=== PATIENT | male | born 1980 | race Caucasian/White ===

== ENCOUNTER 2023-11-08 21:23 | Inpatient (IN) | payer OTHER ==
[~2023-11-08] VITALS: Ht 182.9 cm; Wt 124.3 kg
[~2023-11-08 21:23] MED LIST: FURO-149 PO; MELO-89 PO; TORS10TA15 PO
[2023-11-08 21:31] VITALS: BP_SYST 163; PULSE 102; RESP 20; TEMP 98; O2SAT 96
[2023-11-08 23:08] LABS: BASOPHILS % (AUTO) 0.3 % (0.0-2.0); EOSINOPHILS # (AUTO) 0.4 K/uL (0.0-0.4); HEMATOCRIT 32.1 % (36-54); HEMOGLOBIN 11.1 g/dL (14.0-18.0); LYMPHOCYTES # (AUTO) 1.8 K/uL (1.0-5.5); LYMPHOCYTES % (AUTO) 20.1 % (20.5-51.5); MEAN CORPUSCULAR HEMOGLOBIN 29 pg (27-31); MEAN CORPUSCULAR HGB CONC 35 % (32-36); MEAN CORPUSCULAR VOLUME 83 fL (79.0-98.0); MONOCYTES # (AUTO) 1.3 K/uL (0.0-1.0); MONOCYTES % (AUTO) 14.8 % (1.7-9.3); NEUTROPHILS # (AUTO) 5.4 K/uL (1.8-7.7); NEUTROPHILS % (AUTO) 60.8 % (40.0-70.0); PLATELET COUNT (AUTO) 479 K/uL (130-430); RED BLOOD CELL COUNT(AUTO) 3.85 MIL/uL (4.2-6.2); RED CELL DISTRIBUTION WIDTH 13.3 % (9.0-15.0); WHITE BLOOD COUNT (AUTO) 8.9 K/uL (4.8-10.8)
[2023-11-08 23:22] LABS: PROTHROMBIN TIME 10.3 SECS (9.5-12.5)
[2023-11-08 23:26] LABS: ANION GAP 6 (5-15); CALCIUM 7.8 mg/dL (8.4-11.0); CARBON DIOXIDE 28 mmol/L (23-29); CHLORIDE 103 mmol/L (98-107); GFR AFRICAN AMERICAN 65 mL/min (>90); GLUCOSE 120 mg/dL (74-106); POTASSIUM 3.9 mmol/L (3.5-5.1); SODIUM SERUM 137 mmol/L (136-145); UREA NITROGEN, BLOOD 17 mg/dL (8-21)
[2023-11-08 23:30] LABS: GFR NON AFRICAN-AMERICAN 54 mL/min (>90)
[2023-11-08] MEDS ORDERED: PIPERACILLIN/TAZOBACTAM 4.5 GM/VIAL (ZOSYN) IV ONE (23:32)
[2023-11-08] MEDS: PIPERACILLIN/TAZO 4.5 GM in NS 100 ML IV ONE (23:40)
[2023-11-08] MEDS: LABETALOL HCL 20 MG/4 ML CARTRIDGE IVP ONE (23:40)
[2023-11-08] MEDS: MORPHINE 4 MG INJ. 4 MG/ML VIAL IVP ONE (23:41)
[2023-11-09] VITALS (8 sets, daily range): BP systolic 113–142; PULSE 78–94; RESP 16–20; TEMP 96.9–98.3; O2SAT 93–98
[2023-11-09] MEDS: FUROSEMIDE 20 MG/2 ML VIAL IVP SCH (06:44)
[2023-11-09] MEDS: SPIRONOLACTONE 25 MG TABLET (ALDACTONE) PO ONE (14:36)
[2023-11-09 15:46] LABS: HEMATOCRIT 33.1 % (36-54); HEMOGLOBIN 11.2 g/dL (14.0-18.0); MEAN CORPUSCULAR HEMOGLOBIN 29 pg (27-31); MEAN CORPUSCULAR HGB CONC 34 % (32-36); MEAN CORPUSCULAR VOLUME 84 fL (79.0-98.0); PLATELET COUNT (AUTO) 486 K/uL (130-430); RED BLOOD CELL COUNT(AUTO) 3.95 MIL/uL (4.2-6.2); RED CELL DISTRIBUTION WIDTH 13.3 % (9.0-15.0); WHITE BLOOD COUNT (AUTO) 10.4 K/uL (4.8-10.8)
[2023-11-09 15:47] LABS: CALCIUM 7.8 mg/dL (8.4-11.0); CREATININE 1.25 mg/dL (0.55-1.30); POTASSIUM 4.2 mmol/L (3.5-5.1)
[2023-11-09 16:08] LABS: ATYPICAL LYMPHOCYTES % 2 % (0-0); BAND % (MANUAL) 2 % (0-6); BASOPHILS % (MANUAL) 0 % (0-2); EOSINOPHILS % (MANUAL) 2 % (0-7); LYMPHOCYTES % (MANUAL) 14 % (20-46); METAMYELOCYTES % 1 % (0-0); MONOCYTES % (MANUAL) 15 % (0-11)
[2023-11-09 16:09] LABS: PLATELET ESTIMATE INCREASED (ADEQUATE)
[2023-11-09] MEDS: CEFEPIME 2 GM in D5W 100 ML IV ONE (18:19)
[2023-11-09] MEDS: DOXYCYCLINE HYCLATE 100 MG in D5W 100 ML IV ONE (18:19)
[2023-11-09] MEDS: FUROSEMIDE 100 MG in D5W 90 ML IV SCH (18:19)
[2023-11-09] MEDS: HYDROcodone/ACETAMIN 5-325 MG TAB (NORCO/ VICODIN) PO PRN (18:52)
[2023-11-09] MEDS ORDERED: BALSAM PERU/CASTOR OIL 56.7 GM OINT...G. TP SCH (19:00)
[2023-11-09] MEDS: CEFEPIME 2 GM in D5W 100 ML IV SCH (22:18)
[2023-11-09] MEDS: DOXYCYCLINE HYCLATE 100 MG in D5W 100 ML IV SCH (22:18)
[2023-11-10] VITALS (7 sets, daily range): BP systolic 116–154; PULSE 80–98; RESP 17–20; TEMP 96.8–99.2; O2SAT 94–97
[2023-11-10 07:06] LABS: CALCIUM 8.9 mg/dL (8.4-11.0); CREATININE 1.37 mg/dL (0.55-1.30); POTASSIUM 4.2 mmol/L (3.5-5.1)
[2023-11-10 07:32] LABS: BASOPHILS % (AUTO) 0.4 % (0.0-2.0); EOSINOPHILS # (AUTO) 0.3 K/uL (0.0-0.4); EOSINOPHILS % (AUTO) 2.8 % (0.0-4.0); HEMATOCRIT 34.3 % (36-54); HEMOGLOBIN 11.8 g/dL (14.0-18.0); LYMPHOCYTES # (AUTO) 1.4 K/uL (1.0-5.5); LYMPHOCYTES % (AUTO) 13.4 % (20.5-51.5); MEAN CORPUSCULAR HEMOGLOBIN 29 pg (27-31); MEAN CORPUSCULAR HGB CONC 34 % (32-36); MEAN CORPUSCULAR VOLUME 84 fL (79.0-98.0); MONOCYTES # (AUTO) 1.3 K/uL (0.0-1.0); MONOCYTES % (AUTO) 12.3 % (1.7-9.3); NEUTROPHILS # (AUTO) 7.5 K/uL (1.8-7.7); NEUTROPHILS % (AUTO) 71.1 % (40.0-70.0); PLATELET COUNT (AUTO) 460 K/uL (130-430); RED CELL DISTRIBUTION WIDTH 13.5 % (9.0-15.0); WHITE BLOOD COUNT (AUTO) 10.6 K/uL (4.8-10.8)
[2023-11-10] MEDS: SPIRONOLACTONE 25 MG TABLET (ALDACTONE) PO SCH (09:44)
[2023-11-10] MEDS: AMMONIUM LACTATE 12%, 400 ML LOTION TP SCH (09:48)
[2023-11-10] MEDS: BALSAM PERU/CASTOR OIL 56.7 GM OINT...G. TP SCH (20:36)
[2023-11-11 04:00] VITALS: BP_SYST 123; PULSE 96; RESP 20; TEMP 97.9; O2SAT 97
[2023-11-11 06:32] LABS: CREATININE 1.25 mg/dL (0.55-1.30); POTASSIUM 4.6 mmol/L (3.5-5.1)
[2023-11-11 06:42] LABS: BASOPHILS % (AUTO) 0.6 % (0.0-2.0); EOSINOPHILS # (AUTO) 0.2 K/uL (0.0-0.4); EOSINOPHILS % (AUTO) 3.4 % (0.0-4.0); HEMATOCRIT 36.1 % (36-54); HEMOGLOBIN 12.3 g/dL (14.0-18.0); LYMPHOCYTES # (AUTO) 1.5 K/uL (1.0-5.5); LYMPHOCYTES % (AUTO) 22.5 % (20.5-51.5); MEAN CORPUSCULAR HEMOGLOBIN 29 pg (27-31); MEAN CORPUSCULAR HGB CONC 34 % (32-36); MEAN CORPUSCULAR VOLUME 84 fL (79.0-98.0); MONOCYTES # (AUTO) 1.2 K/uL (0.0-1.0); MONOCYTES % (AUTO) 17.3 % (1.7-9.3); NEUTROPHILS # (AUTO) 3.9 K/uL (1.8-7.7); NEUTROPHILS % (AUTO) 56.2 % (40.0-70.0); PLATELET COUNT (AUTO) 467 K/uL (130-430); RED BLOOD CELL COUNT(AUTO) 4.28 MIL/uL (4.2-6.2); RED CELL DISTRIBUTION WIDTH 13.3 % (9.0-15.0)
[2023-11-11 07:48] LABS: WHITE BLOOD COUNT (AUTO) 6.9 K/uL (4.8-10.8)
[2023-11-11 08:00] VITALS: BP_SYST 146; PULSE 98; RESP 20; TEMP 98.1; O2SAT 95
[2023-11-11] MEDS: MODAFINIL 100 MG TABLET (PROVIGIL) PO SCH (11:06)
[2023-11-11 16:00] VITALS: BP_SYST 145; PULSE 100; RESP 18; TEMP 97.8; O2SAT 99
[2023-11-11 19:00] VITALS: O2SAT 96
[2023-11-11 20:00] VITALS: BP_SYST 150; PULSE 73; RESP 20; TEMP 97.8; O2SAT 96
[2023-11-12] VITALS (7 sets, daily range): BP systolic 124–144; PULSE 72–98; RESP 16–18; TEMP 97–98.7; O2SAT 94–96
[2023-11-12 11:42] LABS: ALBUMIN 2.5 g/dL (3.4-4.8); CALCIUM 8.2 mg/dL (8.4-11.0); CREATININE 1.45 mg/dL (0.55-1.30); POTASSIUM 3.8 mmol/L (3.5-5.1); TOTAL BILIRUBIN 0.4 mg/dL (0.0-1.0); TOTAL PROTEIN, SERUM 9.4 g/dL (6.4-8.3)
[2023-11-12 11:45] LABS: BASOPHILS % (AUTO) 0.5 % (0.0-2.0); EOSINOPHILS # (AUTO) 0.3 K/uL (0.0-0.4); EOSINOPHILS % (AUTO) 4.1 % (0.0-4.0); HEMATOCRIT 36.5 % (36-54); HEMOGLOBIN 12.6 g/dL (14.0-18.0); LYMPHOCYTES # (AUTO) 2.9 K/uL (1.0-5.5); LYMPHOCYTES % (AUTO) 33.6 % (20.5-51.5); MEAN CORPUSCULAR HEMOGLOBIN 28 pg (27-31); MEAN CORPUSCULAR HGB CONC 34 % (32-36); MEAN CORPUSCULAR VOLUME 82 fL (79.0-98.0); MONOCYTES # (AUTO) 1.9 K/uL (0.0-1.0); MONOCYTES % (AUTO) 22.5 % (1.7-9.3); NEUTROPHILS # (AUTO) 3.4 K/uL (1.8-7.7); NEUTROPHILS % (AUTO) 39.3 % (40.0-70.0); PLATELET COUNT (AUTO) 484 K/uL (130-430); RED BLOOD CELL COUNT(AUTO) 4.43 MIL/uL (4.2-6.2); RED CELL DISTRIBUTION WIDTH 13.3 % (9.0-15.0); WHITE BLOOD COUNT (AUTO) 8.6 K/uL (4.8-10.8)
[2023-11-12] MEDS: FUROSEMIDE 40 MG/4 ML VIAL IVP SCH (20:58)
[2023-11-13 04:00] VITALS: BP_SYST 126; PULSE 97; RESP 20; TEMP 97.9; O2SAT 96
[2023-11-13 06:32] LABS: BASOPHILS % (AUTO) 0.5 % (0.0-2.0); EOSINOPHILS # (AUTO) 0.5 K/uL (0.0-0.4); EOSINOPHILS % (AUTO) 4.3 % (0.0-4.0); HEMATOCRIT 39.1 % (36-54); HEMOGLOBIN 13.4 g/dL (14.0-18.0); LYMPHOCYTES # (AUTO) 3.7 K/uL (1.0-5.5); LYMPHOCYTES % (AUTO) 34.1 % (20.5-51.5); MEAN CORPUSCULAR HEMOGLOBIN 28 pg (27-31); MEAN CORPUSCULAR HGB CONC 34 % (32-36); MEAN CORPUSCULAR VOLUME 83 fL (79.0-98.0); MONOCYTES % (AUTO) 18.6 % (1.7-9.3); NEUTROPHILS # (AUTO) 4.6 K/uL (1.8-7.7); NEUTROPHILS % (AUTO) 42.5 % (40.0-70.0); PLATELET COUNT (AUTO) 527 K/uL (130-430); RED BLOOD CELL COUNT(AUTO) 4.71 MIL/uL (4.2-6.2); RED CELL DISTRIBUTION WIDTH 13.3 % (9.0-15.0); WHITE BLOOD COUNT (AUTO) 10.8 K/uL (4.8-10.8)
[2023-11-13 06:49] LABS: ALBUMIN 2.7 g/dL (3.4-4.8); CALCIUM 8.4 mg/dL (8.4-11.0); CREATININE 1.32 mg/dL (0.55-1.30); POTASSIUM 4.1 mmol/L (3.5-5.1); TOTAL BILIRUBIN 0.4 mg/dL (0.0-1.0)
[2023-11-13 08:00] VITALS: BP_SYST 131; PULSE 91; RESP 20; TEMP 97.4; O2SAT 94
[2023-11-13 12:00] VITALS: BP_SYST 127; PULSE 89; RESP 20; TEMP 97.3; O2SAT 96
[2023-11-13 16:00] VITALS: BP_SYST 128; PULSE 115; RESP 20; TEMP 98.5; O2SAT 93
[2023-11-13 20:00] VITALS: BP_SYST 116; PULSE 112; RESP 18; TEMP 98.7; O2SAT 100
[2023-11-14 01:55] VITALS: BP_SYST 111; PULSE 97; RESP 14; TEMP 97.8; O2SAT 92
[2023-11-14 04:27] LABS: BASOPHILS # (AUTO) 0.1 K/uL (0.0-0.2); BASOPHILS % (AUTO) 0.5 % (0.0-2.0); EOSINOPHILS # (AUTO) 0.5 K/uL (0.0-0.4); EOSINOPHILS % (AUTO) 5.1 % (0.0-4.0); HEMATOCRIT 37.1 % (36-54); HEMOGLOBIN 12.9 g/dL (14.0-18.0); LYMPHOCYTES # (AUTO) 3.4 K/uL (1.0-5.5); LYMPHOCYTES % (AUTO) 32.4 % (20.5-51.5); MEAN CORPUSCULAR HEMOGLOBIN 29 pg (27-31); MEAN CORPUSCULAR HGB CONC 35 % (32-36); MEAN CORPUSCULAR VOLUME 83 fL (79.0-98.0); MONOCYTES # (AUTO) 1.8 K/uL (0.0-1.0); MONOCYTES % (AUTO) 17.6 % (1.7-9.3); NEUTROPHILS # (AUTO) 4.7 K/uL (1.8-7.7); NEUTROPHILS % (AUTO) 44.4 % (40.0-70.0); PLATELET COUNT (AUTO) 548 K/uL (130-430); RED BLOOD CELL COUNT(AUTO) 4.49 MIL/uL (4.2-6.2); RED CELL DISTRIBUTION WIDTH 13.5 % (9.0-15.0); WHITE BLOOD COUNT (AUTO) 10.5 K/uL (4.8-10.8)
[2023-11-14 05:00] LABS: ALBUMIN 2.8 g/dL (3.4-4.8); CALCIUM 8.4 mg/dL (8.4-11.0); CREATININE 1.35 mg/dL (0.55-1.30); POTASSIUM 4.5 mmol/L (3.5-5.1); TOTAL BILIRUBIN 0.5 mg/dL (0.0-1.0); TOTAL PROTEIN, SERUM 9.3 g/dL (6.4-8.3)
[2023-11-14 08:00] VITALS: BP_SYST 115; PULSE 72; RESP 15; TEMP 97; O2SAT 97
[2023-11-14 12:13] VITALS: BP_SYST 116; PULSE 106; RESP 17; TEMP 98; O2SAT 96
[2023-11-14 16:27] VITALS: BP_SYST 119; PULSE 102; RESP 18; TEMP 98.4; O2SAT 95
[2023-11-14 19:58] VITALS: O2SAT 99
[2023-11-14 20:00] VITALS: BP_SYST 131; PULSE 94; RESP 19; TEMP 98; O2SAT 97
[2023-11-15] VITALS: BP_SYST 148; PULSE 88; RESP 14; TEMP 98; O2SAT 98
[2023-11-15 08:00] VITALS: O2SAT 96
[2023-11-15 09:37] LABS: BASOPHILS # (AUTO) 0.1 K/uL (0.0-0.2); BASOPHILS % (AUTO) 0.7 % (0.0-2.0); EOSINOPHILS # (AUTO) 0.5 K/uL (0.0-0.4); HEMATOCRIT 37.2 % (36-54); HEMOGLOBIN 12.8 g/dL (14.0-18.0); LYMPHOCYTES # (AUTO) 2.3 K/uL (1.0-5.5); LYMPHOCYTES % (AUTO) 28.6 % (20.5-51.5); MEAN CORPUSCULAR HEMOGLOBIN 29 pg (27-31); MEAN CORPUSCULAR HGB CONC 34 % (32-36); MEAN CORPUSCULAR VOLUME 83 fL (79.0-98.0); MONOCYTES # (AUTO) 1.2 K/uL (0.0-1.0); MONOCYTES % (AUTO) 15.4 % (1.7-9.3); NEUTROPHILS # (AUTO) 3.9 K/uL (1.8-7.7); NEUTROPHILS % (AUTO) 49.3 % (40.0-70.0); PLATELET COUNT (AUTO) 429 K/uL (130-430); RED BLOOD CELL COUNT(AUTO) 4.47 MIL/uL (4.2-6.2); RED CELL DISTRIBUTION WIDTH 13.3 % (9.0-15.0)
[2023-11-15 09:55] LABS: ALBUMIN 2.7 g/dL (3.4-4.8); CREATININE 1.38 mg/dL (0.55-1.30); POTASSIUM 4.2 mmol/L (3.5-5.1); TOTAL BILIRUBIN 0.5 mg/dL (0.0-1.0); TOTAL PROTEIN, SERUM 9.6 g/dL (6.4-8.3)
[2023-11-15 11:07] VITALS: BP_SYST 118; PULSE 98; RESP 18; TEMP 98.1; O2SAT 99
[2023-11-15] MEDS ORDERED: MODA100T31 PO (13:29)
[2023-11-15] MEDS ORDERED: FURO-149 PO (13:29)
[2023-11-15] MEDS ORDERED: AMOX-423 PO (13:58)
[2023-11-15] MEDS ORDERED: CLIN-22 PO (13:58)
[2023-11-15 15:00] VITALS: BP_SYST 114; PULSE 122; RESP 18; TEMP 96.8; O2SAT 96
[2023-11-15] MEDS ORDERED: FUROSEMIDE 40 MG TABLET PO SCH (21:00)
== END 2023-11-15 15:49 | disposition home or self-care (01) | DRG 194 ==
LOC: SED 21:23 → STU 11-09 01:17 → SMU 11-14 20:39
PROVIDERS: ADMIT Specialist; ATTEND Specialist
DX: I50.33 Acute on chronic diastolic (congestive) heart failure (principal); N17.9 Acute kidney failure, unspecified; L03.115 Cellulitis of right lower limb; L97.919 Non-pressure chronic ulcer of unspecified part of right lower leg with unspecified severity; I27.20 Pulmonary hypertension, unspecified; L03.116 Cellulitis of left lower limb; I87.2 Venous insufficiency (chronic) (peripheral); E66.9 Obesity, unspecified; G47.30 Sleep apnea, unspecified; D75.839 Thrombocytosis, unspecified; N18.9 Chronic kidney disease, unspecified; F15.10 Other stimulant abuse, uncomplicated; Z68.37 Body mass index [BMI] 37.0-37.9, adult; L97.929 Non-pressure chronic ulcer of unspecified part of left lower leg with unspecified severity
CPT/HCPCS: 36415; 71045; 76770; 80048; 80053; 83605; 83880; 84484; 85007; 85025; 85027; 85610; 85730; 87040; 87070; 87186; 93005; 93306; 93923; 93970; 94660; 94760; 99285; G0378; J0692; J1940; J2270; J2543; J3490; J7060